=== PATIENT | male | born 1975 | race American Indian/Alaskan Native ===

== ENCOUNTER 2016-10-16 02:08 | Inpatient (IN) | payer MEDICAID ==
--- NOTE | 2016-10-16 02:23 | C.PDOC ---
History Of Present Illness A 40 y/o male with a hx of asthma c/o SOB after waking up tonight. Patient also reports feeling depressed saying "he wants to take pills". Denies fever, chills , nausea, vomiting, chest pain, palpitations, lower extremity pain, diaphoresis , or any other complaints. patient is speaking in full sentences. Time Seen by Provider: 10/16/16 02:23 History Per: Patient History/Exam Limitations: no limitations Onset/Duration Of Symptoms: Hrs Current Symptoms Are (Timing): Still Present Preciptating Factors: None Severity: Mild Recent travel outside of the [place]: No Additional History Per: Patient Past Medical History Reviewed: Historical Data, Nursing Documentation, Vital Signs Vital Signs: Last Vital Signs Temp 98.3 F 10/16/16 02:17 Pulse 74 10/16/16 02:17 Resp 20 10/16/16 02:39 BP 128/83 10/16/16 02:17 Pulse Ox 96 10/16/16 03:51 - Medical History PMH: Asthma, Bronchitis Family History: States: Unknown Family Hx - Social History Hx Alcohol Use: No Hx Substance Use: No Review Of Systems Constitutional: Negative for: Fever, Chills Eyes: Negative for: Vision Change ENT: Negative for: Throat Pain Cardiovascular: Negative for: Chest Pain, Palpitations Respiratory: Positive for: Shortness of Breath Gastrointestinal: Negative for: Nausea, Vomiting Genitourinary: Negative for: Dysuria Musculoskeletal: Negative for: Leg Pain, Foot Pain Skin: Positive for: Rash Neurological: Negative for: Headache, Dizziness Psych: Positive for: Depression, Suicidal ideation Physical Exam - Physical Exam Appears: Non-toxic, No Acute Distress Skin: Warm, Dry, Other (Skin impetigo to the right nare and upper lip.) Head: Normacephalic Eye(s): bilateral: Normal Inspection Oral Mucosa: Moist Throat: Normal, No Erythema, No Exudate Neck: Supple Cardiovascular: Rhythm Regular Respiratory: No Rales, No Rhonchi, Wheezing (Scattered), Other (Speaking in full sentences) Gastrointestinal/Abdominal: Soft, No Tenderness Back: No CVA Tenderness Extremity: Normal ROM Extremity: Bilateral: Atraumatic Neurological/Psych: Oriented x3, Normal Speech, Other (Affect depressed) Gait: Steady ED Course And Treatment - Laboratory Results Result Diagrams: 10/16/16 02:48 10/16/16 02:45 ECG: Interpreted By Me, Viewed By Me ECG Rhythm: Sinus Rhythm (69), Nonspecific Changes O2 Sat by Pulse Oximetry: 96 (RA) Pulse Ox Interpretation: Normal - Radiology CXR: Interpreted by Me, Viewed By Me CXR Interpretation: No: Infiltrates, Fracture, Pnemothorax Disposition Discussed With Dr.: Alejandro Randle Comment: accepted the pt on h is service and took over the care at 5:39 AM Doctor Will See Patient In The: Hospital Counseled Patient/Family Regarding: Studies Performed, Diagnosis - Disposition Disposition: HOSPITALIZED Disposition Time: : Condition: FAIR - POA Present On Arrival: None - Clinical Impression Clinical Impression: Major depressive disorder, recurrent, unspecified, PCP (phencyclidine) abuse, Opioid abuse - Scribe Statement The provider has reviewed the documentation as recorded by the Scribe Ani moore All medical record entries made by the Scribe were at my direction and personally dictated by me. I have reviewed the chart and agree that the record accurately reflects my personal performance of the history, physical exam, medical decision making, and the department course for this patient. I have also personally directed, reviewed, and agree with the discharge instructions and disposition. Decision To Admit - Pt Status Changed To: Hospital Disposition Of: Inpatient - Admit Certification Admit to Inpatient:: After my assessment, the patient will require hospitalization for at least two midnights. This is because of the severity of symptoms shown, intensity of services needed, and/or the medical risk in this patient being treated as an outpatient. - InPatient: Physician Admission Certification:: After my assessment, the patient will require hospitalization for at least two midnights. This is because of the severity of symptoms shown, intensity of services needed, and/or the medical risk in this patient being treated as an outpatient. - . Bed Request Type: Psychiatry Admitting Physician: Alejandro Randle Patient Diagnosis: Major depressive disorder, recurrent, unspecified, PCP (phencyclidine) abuse, Opioid abuse
[2016-10-16] MEDS: Albuterol-Ipratrop 3 mg / 0.5 (3 ml) UD IH SCH ×3 (02:45→03:30)
[2016-10-16 02:52] LABS: BASO # 0.1 K/uL (0.0-0.2); BASO % 0.6 % (0.0-2.0); EOS # 0.3 K/uL (0.0-0.7); EOS % 2.5 % (0.0-4.0); LYMPH # 2.2 K/uL (1.0-4.3); LYMPH % 17.9 % (20.0-40.0); MEAN CELL VOLUME 87.4 fL (80.0-94.0); MEAN CORPUSCULAR HEMOGLOBIN 29.2 pg (27.0-31.0); MEAN CORPUSCULAR HGB CONC 33.4 g/dL (33.0-37.0); MEAN PLATELET VOLUME 9.1 fL (7.2-11.7); MONO # 1.1 K/uL (0.0-0.8); MONO % 9.4 % (0.0-10.0); RED CELL DISTRIBUTION WIDTH 13.9 % (11.5-14.5); WHITE BLOOD COUNT 12.1 K/uL (4.8-10.8)
[2016-10-16 02:55] LABS: CHLORIDE 107 mmol/L (98-107); POTASSIUM 3.4 mmol/L (3.6-5.2); SODIUM 145 mmol/L (132-148)
[2016-10-16 02:56] LABS: ABG ALLEN TEST POS; ARTERIAL BLOOD GAS MODE ROOM AIR/; DRAW SITE RR
[2016-10-16 02:57] LABS: BILIRUBIN,TOTAL 0.5 mg/dL (0.2-1.3); GFR AFRICAN-AMERICAN > 60
[2016-10-16 02:58] LABS: ALB/GLOB RATIO 1.2 (1.0-2.1); ALKALINE PHOSPHATASE 73 U/L (38-126); ALT/SGPT 36 U/L (21-72); AST/SGOT 26 U/L (17-59); BLOOD UREA NITROGEN 9 mg/dL (9-20); CALCIUM 8.9 mg/dl (8.6-10.4); CARBON DIOXIDE 24 mmol/L (22-30); GLUCOSE,RANDOM 97 mg/dL (75-110); TOTAL PROTEIN 6.9 g/dL (6.3-8.3)
[2016-10-16 02:59] LABS: ALCOHOL SERUM < 10 mg/dl (0-10)
[2016-10-16 04:20] LABS: RBC URINE 11 /hpf (0-3); URINE BILIRUBIN NEGATIVE (NEGATIVE); URINE COLOR Amber (YELLOW); URINE GLUCOSE (UA) NORMAL (Normal); URINE KETONE TRACE mg/dL (NEGATIVE); URINE LEUKOCYTE ESTERASE TRACE Leu/uL (Negative); URINE PROTEIN 2+ mg/dL (NEGATIVE); WBC URINE 3 /hpf (0-5)
[2016-10-16 04:31] LABS: URINE BACTERIA FEW (<OCC); URINE BLOOD TRACE (NEGATIVE)
[2016-10-16 06:14] VITALS: O2SAT 95
[2016-10-16] MEDS ORDERED: Potassium Chloride 10 mEq ER Tab PO ONE (06:15)
--- NOTE | 2016-10-16 08:26 | PCM.BM ---
<Debbie Clark - Last Filed: 10/16/16 08:17> Treatment Plan Problems - Problems identified on initial assessmt Problem 1 Date Initiated: 10/16/16 Time Initiated: 08:18 Assessment reference: NA Opiate Abuse Date Initiated: 10/16/16 Time Initiated: 08:19 Assessment reference: NA Treatment assets and liabiliti Patient Assests: cooperative Patient Liabilities: financial problems, poor support system, substance abuse - Milieu Protocol Maintain good personal hygiene: daily Encourage regular showers, daily Remind patient to perform daily oral care Conduct patient checks and document Observation sheet: Q15 minutes Maintain personal safety: daily Educate patient to report safety concerns to staff, daily Monitor environment for contraband/sharps Medication safety: Monitor for expected outcome, potential side effects: daily, Assess barriers to learning: daily, Assess readiness for medication education: daily <Velma Muñoz - Last Filed: 10/16/16 10:49> Family Contact Family involvement: Family/SO is involved Family contact: Patient agrees to contact Family contact name: Rashi Prasad-father Family contacted how many times per week?: 1 - Goals for Treatment Patient goals for treatment: "I want to go to a methadone clinic." Discharge/Continuing Care - Education Needs Education Needs: Patient Medication, Patient Coping Skills, Patient Placement options, Patient Community resources - Discharge Discharge Criteria: Tolerates medication w/o severe side effects, No longer exhibiting s/s of withdrawal, Reduction of target symptoms Discharge to:: Skilled Nursing - Treatment Team Participation Was Patient/Family/SO present at Treatment Team Meeting: Yes <Rocio Cooney - Last Filed: 10/16/16 10:54> - Diagnosis (1) Schizoaffective disorder Status: Acute Interventions: * Assess/adjust medications daily and /or as needed * See patient on an individual basis 7x/week to assess status of hallucinations * Discuss risks, benefits, side effects and alternatives of medications (2) Opioid abuse Status: Acute Interventions: 10/16/16 10:54 * Assess 7x/week regarding severity of withdrawal * Educate regarding risks, benefits, side effects and alternatives of medications * Use Motivational Interviewing for abstinence * Use CBT for relapse prevention * Medication management for withdrawal symptoms * Encourage medication assisted treatment *
--- NOTE | 2016-10-16 10:20 | RAD ---
PROCEDURE: CHEST RADIOGRAPH, 1 VIEW HISTORY: Shortness of breath COMPARISON: None available. FINDINGS: LUNGS: The lungs are well inflated and clear. PLEURA: No pneumothorax or pleural fluid seen. CARDIOVASCULAR: Normal. OSSEOUS STRUCTURES: No significant abnormalities. VISUALIZED UPPER ABDOMEN: Normal. OTHER FINDINGS: None. IMPRESSION: No active pulmonary disease.
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
[2016-10-16] MEDS ORDERED: Aluminum Hydroxide/Magnesium Hydroxide Susp (30 mL) PO PRN (10:47)
[2016-10-16] MEDS ORDERED: Benzocaine/Menthol (Cepacol) Lozenge PO PRN (10:47)
--- NOTE | 2016-10-16 19:56 | PCM.BM ---
Treatment Plan Problems - Problems identified on initial assessmt Depression Date Initiated: 10/16/16 Time Initiated: 08:18 Assessment reference: NA Opiate Abuse Date Initiated: 10/16/16 Time Initiated: 08:19 Assessment reference: NA Treatment assets and liabiliti Patient Assests: cooperative Patient Liabilities: financial problems, poor support system, substance abuse - Milieu Protocol Maintain good personal hygiene: daily Encourage regular showers, daily Remind patient to perform daily oral care Conduct patient checks and document Observation sheet: Q15 minutes Maintain personal safety: daily Educate patient to report safety concerns to staff, daily Monitor environment for contraband/sharps Medication safety: Monitor for expected outcome, potential side effects: daily, Assess barriers to learning: daily, Assess readiness for medication education: daily Family Contact Family involvement: Family/SO is involved Family contact: Patient agrees to contact Family contact name: Rashi Prasad-father Family contacted how many times per week?: 1 - Goals for Treatment Patient goals for treatment: "I want to go to a methadone clinic." Discharge/Continuing Care - Education Needs Education Needs: Patient Medication, Patient Coping Skills, Patient Placement options, Patient Community resources - Discharge Discharge Criteria: Tolerates medication w/o severe side effects, No longer exhibiting s/s of withdrawal, Reduction of target symptoms Discharge to:: [facility] - Treatment Team Participation Was Patient/Family/SO present at Treatment Team Meeting: Yes
--- NOTE | 2016-10-17 12:54 | CARD ---
APPROVED REPORT EKG Measurement Heart [id number] <Conclusion> Normal sinus rhythm Normal ECG
--- NOTE | 2016-10-17 13:46 | PCM.PYCHPN ---
Psychiatric Progress Note - Psychiatric Progress Note Patient seen today, length of contact: 15 MIN Patient Chief Complaint: "I am withdrawing and am depressed." Problems Identified/Issues Discussed: Patient seen and evaluated, chart reviewed and discussed with the nurse. Patient remained disorganized and internally preoccupied. Patient remained isolated, confined and withdrawn. He still reports of hearing voices. Patient still appears paranoid and delusional. He reports depressed mood and feelings of hopelessness and helplessness. He reports withdrawal symptoms including cramps, sweating, headaches anxiety. But remained isolated and withdrawn. He is taking medication and denies any side effects. Supportive therapy and psychoeducation were given. Medication Change: Yes (increase haldol) Medical Record Reviewed: Yes Mental Status Examination - Cognitive Function Orientation: Person, Place, Situation, Time Memory: Intact Attention: WNL Concentration: Poor Association: Loose Fund of Knowledge: Poor - Mood Mood: Depressed, Anxious - Affect Affect: Constricted, Depressed - Speech Speech: Soft - Formal Thought Process Formal Thought Process: Hallucinations, Delusions, Paranoia, Loosening of associations - Suicidal Ideation Suicidal Ideation: No - Homicidal Ideation Homicidal Ideation: No Goal/Treatment Plan - Goal/Treatment Plan Need for Continued Stay: Discharge may exacerbated symptoms, Severe functional impairment Progress Toward Problem(s) and Goals/Treatment Plan: Schizo affective disorder bipolar type CBT Psychoeducation Supportive therapy, group therapy, individual therapy Haldol 5 mg by mouth BID Trazodone 50 mg by mouth daily at bedtime Depakote 500 mg po BID Opioid use disorder severe CBT Psychoeducation Supportive therapy, individual therapy Use [place] for abstinence Opioid withdrawal CBT Psychoeducation Supportive therapy, individual therapy Clonidine when necessary methadone taper Cocaine use disorder moderate Monitor signs and symptoms Use [place] for abstinence - Smoking Cessation Smoking Cessation Initiated: No
[2016-10-17] MEDS: Albuterol HFA 90 mcg/actuation (8 g) INH PRN (19:50)
--- NOTE | 2016-10-18 10:02 | PCM.PYCHPN ---
Psychiatric Progress Note - Psychiatric Progress Note Patient seen today, length of contact: 16 min Patient Chief Complaint: "I am withdrawing and am depressed." Problems Identified/Issues Discussed: Patient seen and evaluated, chart reviewed and discussed with the nurse. Patient remained disorganized and remained isolated, confined and withdrawn. He still reports withdrawal symptoms and reports of hearing voices. Patient still appears paranoid and delusional. He reports depressed mood and feelings of hopelessness and helplessness. He is taking medication and denies any side effects. He needs some time for socialization. Supportive therapy and psychoeducation were given. Medication Change: Yes Medical Record Reviewed: Yes Mental Status Examination - Cognitive Function Orientation: Person, Place, Situation, Time Memory: Intact Attention: WNL Concentration: Poor Association: Loose Fund of Knowledge: WNL - Mood Mood: Depressed, Anxious - Affect Affect: Constricted, Depressed - Speech Speech: Soft - Formal Thought Process Formal Thought Process: Hallucinations, Delusions, Paranoia, Loosening of associations - Suicidal Ideation Suicidal Ideation: No - Homicidal Ideation Homicidal Ideation: No Goal/Treatment Plan - Goal/Treatment Plan Need for Continued Stay: Discharge may exacerbated symptoms, Severe functional impairment Progress Toward Problem(s) and Goals/Treatment Plan: Schizo affective disorder bipolar type CBT Psychoeducation Supportive therapy, group therapy, individual therapy Haldol 5 mg by mouth QHS Depakote 500 mg PO BID Trazodone 50 mg by mouth daily at bedtime Opioid use disorder severe CBT Psychoeducation Supportive therapy, individual therapy Use [place] for abstinence Opioid withdrawal CBT Psychoeducation Supportive therapy, individual therapy Clonidine when necessary methadonetaper Cocaine use disorder moderate Monitor signs and symptoms Use [place] for abstinence - Smoking Cessation Smoking Cessation Initiated: No
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
[2016-10-19] MEDS: Ammonium Lactate 12% Lotion (225 g) EXT SCH ×3 (09:25→17:51)
[2016-10-19] MEDS ORDERED: Pneumococcal 23-Valent Vaccine IM ONE (10:00)
--- NOTE | 2016-10-19 10:41 | PCM.PYCHPN ---
Psychiatric Progress Note - Psychiatric Progress Note Patient seen today, length of contact: 15 min Patient Chief Complaint: "I am still feeling depressed." Problems Identified/Issues Discussed: Patient seen and evaluated, chart reviewed and discussed with the nurse. Supportive therapy and psychoeducation were given. Patient reports improvement in his mood than yesterday but still reports withdrawal symptoms including, cramps, nausea, anxiety and headaches. Patient reports depressed mood and AH non command type. He is tolerating the withdrawal medications and denies any side effects. Medicine was consulted because of skin rash. He needs more time for stabilization. Medication Change: Yes (methaodne taper) Medical Record Reviewed: Yes Mental Status Examination - Cognitive Function Orientation: Person, Place, Situation, Time Memory: Intact Attention: WNL Concentration: Poor Association: Loose Fund of Knowledge: WNL - Mood Mood: Depressed, Anxious - Affect Affect: Constricted, Depressed - Speech Speech: Soft - Formal Thought Process Formal Thought Process: Hallucinations, Delusions, Paranoia, Loosening of associations - Suicidal Ideation Suicidal Ideation: No - Homicidal Ideation Homicidal Ideation: No Goal/Treatment Plan - Goal/Treatment Plan Need for Continued Stay: Discharge may exacerbated symptoms, Severe functional impairment Progress Toward Problem(s) and Goals/Treatment Plan: Schizo affective disorder bipolar type CBT Psychoeducation Supportive therapy, group therapy, individual therapy Haldol 5 mg by mouth QHS Depakote 500 mg PO BID Trazodone 50 mg by mouth daily at bedtime Opioid use disorder severe CBT Psychoeducation Supportive therapy, individual therapy Use DE for abstinence Opioid withdrawal CBT Psychoeducation Supportive therapy, individual therapy Clonidine when necessary methadone taper Cocaine use disorder moderate Monitor signs and symptoms Use DE for abstinence - Smoking Cessation Smoking Cessation Initiated: No
[2016-10-20] MEDS: Ammonium Lactate 12% Lotion (225 g) EXT SCH ×3 (09:38→17:24)
--- NOTE | 2016-10-20 11:46 | PCM.PYCHPN ---
Psychiatric Progress Note - Psychiatric Progress Note Patient seen today, length of contact: 15 min Patient Chief Complaint: "I am feeling little better ' Problems Identified/Issues Discussed: Patient seen and evaluated, chart reviewed and discussed with the nurse. Patient appeared more organized and less internally preoccupied. Patient reports improvement in the irritability, anxiety and agitation. He also reports improvement in the voices. Patient still appears paranoid and delusional. He reports improvement in his depressed mood but remained isolated and withdrawn, denies any suicidal ideation or homicidal ideation. He is taking medications and denies any side effects. He needs more time for stabilization. Supportive therapy and psychoeducation were given. Medication Change: Yes (Increase Haldol) Medical Record Reviewed: Yes Mental Status Examination - Cognitive Function Orientation: Person, Place, Situation, Time Memory: Intact Attention: WNL Concentration: Poor Association: Loose Fund of Knowledge: WNL - Mood Mood: Depressed, Anxious - Affect Affect: Constricted, Depressed - Speech Speech: Soft - Formal Thought Process Formal Thought Process: Hallucinations, Delusions, Paranoia, Loosening of associations - Suicidal Ideation Suicidal Ideation: No - Homicidal Ideation Homicidal Ideation: No Goal/Treatment Plan - Goal/Treatment Plan Need for Continued Stay: Discharge may exacerbated symptoms, Severe functional impairment Progress Toward Problem(s) and Goals/Treatment Plan: Schizo affective disorder bipolar type CBT Psychoeducation Supportive therapy, group therapy, individual therapy Increase Haldol 10 mg by mouth BID Depakote 500 mg PO BID Trazodone 100 mg by mouth daily at bedtime Opioid use disorder severe CBT Psychoeducation Supportive therapy, individual therapy Use IN for abstinence Opioid withdrawal CBT Psychoeducation Supportive therapy, individual therapy Clonidine when necessary methadone taper Cocaine use disorder moderate Monitor signs and symptoms Use IN for abstinence Skin infection Continue prescribed medications - Smoking Cessation Smoking Cessation Initiated: No
[2016-10-20] MEDS: Divalproex 250 mg DR Tab PO SCH (17:23)
[2016-10-20] MEDS ORDERED: Divalproex 250 mg DR Tab PO SCH (18:00)
[2016-10-21] MEDS: Divalproex 250 mg DR Tab PO SCH ×2 (09:06→17:57)
[2016-10-21] MEDS: Ammonium Lactate 12% Lotion (225 g) EXT SCH ×3 (09:07→17:57)
--- NOTE | 2016-10-21 16:41 | PCM.PYCHPN ---
Psychiatric Progress Note - Psychiatric Progress Note Patient seen today, length of contact: 15 min Patient Chief Complaint: "I feel okay." Problems Identified/Issues Discussed: Patient seen and evaluated, chart reviewed and discussed with the nurse. Patient is a 40 y/o male with complaint of asthma attack and withdrawal sxs. from heroine, cocaine, marijuana, and PCP. His asthma is currently controlled w / albuterol. He reports having withdrawal symptoms, including n/v, diarrhea, body aches, and stiffness. Patient appears a little withdrawn and seemed to have trouble concentrating on the questions being asked. He denies being anxious or agitated. He was hearing voices and seeing shadows 3 days ago, but denies having hallucinations today. He feels "okay" today, "a little guilty," and decrease in energy. His sleep has improved with medications. He denies homicidal ideation and suicidal ideation. He is taking medications and denies any side effects. He needs more time for stabilization. Supportive therapy and psychoeducation were given. Medication Change: Yes (Increase Haldol) Medical Record Reviewed: Yes Mental Status Examination - Cognitive Function Orientation: Person, Place, Situation, Time Memory: Intact Attention: WNL Concentration: Poor Association: Loose Fund of Knowledge: WNL - Mood Mood: Depressed, Anxious - Affect Affect: Constricted, Depressed - Speech Speech: Soft - Formal Thought Process Formal Thought Process: Hallucinations, Delusions, Paranoia, Loosening of associations - Suicidal Ideation Suicidal Ideation: No - Homicidal Ideation Homicidal Ideation: No Goal/Treatment Plan - Goal/Treatment Plan Need for Continued Stay: Discharge may exacerbated symptoms, Severe functional impairment Progress Toward Problem(s) and Goals/Treatment Plan: Schizo affective disorder bipolar type CBT Psychoeducation Supportive therapy, group therapy, individual therapy Increase Haldol 10 mg by mouth BID Depakote 500 mg PO BID Trazodone 100 mg by mouth daily at bedtime Opioid use disorder severe CBT Psychoeducation Supportive therapy, individual therapy Use HI for abstinence Opioid withdrawal CBT Psychoeducation Supportive therapy, individual therapy Clonidine when necessary methadone taper Cocaine use disorder moderate Monitor signs and symptoms Use HI for abstinence Skin infection Continue prescribed medications
[2016-10-22] MEDS: Divalproex 250 mg DR Tab PO SCH ×2 (09:40→17:30)
[2016-10-22] MEDS: Ammonium Lactate 12% Lotion (225 g) EXT SCH ×3 (09:41→17:30)
[2016-10-22] MEDS: Albuterol HFA 90 mcg/actuation (8 g) INH PRN (22:05)
[2016-10-23 07:42] VITALS: BP 122/68; PULSE 71; RESP 19; TEMP 98
[2016-10-23] MEDS: Divalproex 250 mg DR Tab PO SCH (09:47)
[2016-10-23] MEDS: Ammonium Lactate 12% Lotion (225 g) EXT SCH (09:47)
--- NOTE | 2016-10-23 10:46 | PCM.PYCHPN ---
Psychiatric Progress Note - Psychiatric Progress Note Patient seen today, length of contact: 15 min Patient Chief Complaint: "I feel okay." Problems Identified/Issues Discussed: The pt is seen, chart reviewed, case discussed with staff. Support given, CBT and PR used briefly No new symptoms reported, improving slowly and needs some more time No SEs from medications, risks discussed. After care discussed Medication Change: Yes (Increase Haldol) Medical Record Reviewed: Yes Mental Status Examination - Cognitive Function Orientation: Person, Place, Situation, Time Memory: Intact Attention: WNL Concentration: WNL Association: WNL Fund of Knowledge: Poor - Mood Mood: Depressed, Anxious - Affect Affect: Constricted, Depressed - Speech Speech: Soft - Formal Thought Process Formal Thought Process: Delusions - Suicidal Ideation Suicidal Ideation: No - Homicidal Ideation Homicidal Ideation: No Goal/Treatment Plan - Goal/Treatment Plan Need for Continued Stay: Discharge may exacerbated symptoms, Severe functional impairment Progress Toward Problem(s) and Goals/Treatment Plan: Schizo affective disorder bipolar type CBT Psychoeducation Supportive therapy, group therapy, individual therapy Increase Haldol 10 mg by mouth BID Depakote 500 mg PO BID Trazodone 100 mg by mouth daily at bedtime Opioid use disorder severe CBT Psychoeducation Supportive therapy, individual therapy Use PR for abstinence Opioid withdrawal CBT Psychoeducation Supportive therapy, individual therapy Clonidine when necessary methadone taper Cocaine use disorder moderate Monitor signs and symptoms Use PR for abstinence Skin infection Continue prescribed medications - Smoking Cessation Smoking Cessation Initiated: No
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
== END 2016-10-23 11:15 | disposition home or self-care (01) | DRG 744 ==
LOC: C.ER 02:08 → C.5E 05:38
PROC: HZ2ZZZZ Detoxification Services for Substance Abuse Treatment (ICD-10-PCS; principal; 2016-10-16)
PROC: HZ52ZZZ Individual Psychotherapy for Substance Abuse Treatment, Cognitive-Behavioral (ICD-10-PCS; 2016-10-16)
PROC: HZ42ZZZ Group Counseling for Substance Abuse Treatment, Cognitive-Behavioral (ICD-10-PCS; 2016-10-16)
PROC: HZ59ZZZ Individual Psychotherapy for Substance Abuse Treatment, Supportive (ICD-10-PCS; 2016-10-16)
PROC: HZ56ZZZ Individual Psychotherapy for Substance Abuse Treatment, Psychoeducation (ICD-10-PCS; 2016-10-16)
PROC: HZ46ZZZ Group Counseling for Substance Abuse Treatment, Psychoeducation (ICD-10-PCS; 2016-10-16)
DX: F11.23 Opioid dependence with withdrawal (principal); F25.0 Schizoaffective disorder, bipolar type; R45.851 Suicidal ideations; E88.89 Other specified metabolic disorders; J45.901 Unspecified asthma with (acute) exacerbation; F12.288 Cannabis dependence with other cannabis-induced disorder; F16.288 Hallucinogen dependence with other hallucinogen-induced disorder; F14.23 Cocaine dependence with withdrawal; Z59.0 Homelessness; F17.210 Nicotine dependence, cigarettes, uncomplicated

== ENCOUNTER 2017-03-20 14:12 | Inpatient (IN) | payer MEDICAID ==
[2017-03-20 15:03] VITALS: BMI 34.4
[2017-03-20] MEDS ORDERED: Albuterol-Ipratrop 3 mg / 0.5 (3 ml) UD INH STA (15:07)
[2017-03-20] MEDS ORDERED: cefTRIAXone (Rocephin) 250 mg Inj IM STA (15:08)
--- NOTE | 2017-03-20 15:18 | C.PDOC ---
History Of Present Illness 41 yr old male presents to the ER stating, he was [place] [facility] [place] and was discharged home with antibiotics after being diagnosed with UTI. Today, patient states he comes in for continuing scrotal pain and SI. Patient admits to history for admission for depression. Also states he was unable to fill his prescription today. Patient denies visual or auditory hallucinations, fever, chills, chest pain, SOB, diarrhea, incontinence, weakness or numbness. No alcohol or drug use today. Time Seen by Provider: 03/20/17 14:29 Chief Complaint (Nursing): Abdominal Pain History Per: Patient History/Exam Limitations: no limitations Onset/Duration Of Symptoms: Days Current Symptoms Are (Timing): Still Present Past Medical History Reviewed: Historical Data, Nursing Documentation, Vital Signs Vital Signs: Last Vital Signs Temp 99.4 F 03/20/17 18:05 Pulse 73 03/20/17 18:05 Resp 16 03/20/17 18:05 BP 165/93 H 03/20/17 18:05 Pulse Ox 95 03/20/17 18:05 - Medical History PMH: Asthma, Bronchitis, Depression - [facility] Procedures DETOXIFICATION SERVICES FOR SUBSTANCE ABUSE TREATMENT (10/16/16) GROUP RN EMERGENCY ROOM FOR SUBSTANCE ABUSE TREATMENT, PSYCHOEDUCATION (10/16/16) GROUP RN EMERGENCY ROOM FOR SUBSTANCE ABUSE, COGNITIVE BEHAVIORAL (10/16/16) INDIV PSYCHOTHERAPY FOR SUBSTANCE ABUSE TREATMENT, SUPPORT (10/16/16) INDIV PSYCHOTHERAPY FOR SUBSTANCE ABUSE, COGNITIV BEHAVIORAL (10/16/16) INDIV PSYCHOTHERAPY FOR SUBSTANCE ABUSE, PSYCHOEDUCATION (10/16/16) Family History: States: No Known Family Hx - Social History Hx Alcohol Use: No Hx Substance Use: Yes (PCP) - Immunization History Hx Tetanus Toxoid Vaccination: No Hx Influenza Vaccination: No Hx Pneumococcal Vaccination: No Review Of Systems Except As Marked, All Systems Reviewed And Found Negative. Constitutional: Negative for: Fever, Chills Cardiovascular: Negative for: Chest Pain Respiratory: Negative for: Shortness of Breath Gastrointestinal: Negative for: Diarrhea Genitourinary: Positive for: Hematuria, Scrotal Pain. Negative for: Incontinence Neurological: Negative for: Weakness, Numbness Psych: Positive for: Suicidal ideation Physical Exam - Physical Exam Appears: Non-toxic, No Acute Distress Skin: Warm, Dry, No Rash Chest: Symmetrical, No Tenderness Cardiovascular: Rhythm Regular, No Murmur Respiratory: No Rales, No Stridor, Wheezing (bilateral) Gastrointestinal/Abdominal: Normal Exam, Soft, No Tenderness, No Guarding, No Rebound Back: Normal Inspection, No CVA Tenderness Male Genital: No Testicular Tenderness, Circumcised, Other ((+) spontaneous yellow discharge from penis, distended bilateral tesicules, right sided scrotal tenderness) Extremity: Normal ROM, No Swelling Neurological/Psych: Oriented x3, Normal Speech, Normal Motor ED Course And Treatment - Laboratory Results Result Diagrams: 03/20/17 15:38 03/20/17 15:38 O2 Sat by Pulse Oximetry: 98 (RA) Pulse Ox Interpretation: Normal Medical Decision Making Medical Decision Making: PLAN: * US - Testicular * EKG * Alcohol Serum * Drug Screen * CBC * CMP * Chlamydia GC * Urinalysis * Albuterol INH * Rocephin IM * Zithromax PO NOTE: Patient is unable to tell me if he was treated for chlamydia or gonorrhea. Also unable to recall the name of antibiotics he was prescribed from [facility] Patient was dischargred on cefpoxidine per overhead worker 5:10PM Patient was treated presumptively for gonorrhea and chlamydia due to penile discharge. Patient has uti. He is well appearing and afebrile. EKG shows NSR at 72bpm with normal intervals and no ST changes. U/S Negative study for epididymitis, orchitis or torsion. Complex right hydrocele, small simple left hydrocele. Scrotal thickening symmetrical and mild." He can be admitted to psych with po antibiotics for uti. he is medically cleared. 7:06PM Accepted by Dr. Merritt Disposition - Disposition Disposition: HOME/ ROUTINE Disposition Time: 17:20 Condition: GOOD Forms: [facility] (Faroese) - Clinical Impression Clinical Impression: Hydrocele, UTI (urinary tract infection), Penile discharge, Depression, Opiate abuse, continuous - Scribe Statement The provider has reviewed the documentation as recorded by the Monchoibe Melisa Christine Provider Attestation: All medical record entries made by the Scribe were at my direction and personally dictated by me. I have reviewed the chart and agree that the record accurately reflects my personal performance of the history, physical exam, medical decision making, and the department course for this patient. I have also personally directed, reviewed, and agree with the discharge instructions and disposition.
[2017-03-20 15:45] LABS: BASO % 0.3 % (0.0-2.0); EOS # 0.1 K/uL (0.0-0.7); EOS % 0.5 % (0.0-4.0); HEMOGLOBIN 12.3 g/dL (12.0-18.0); LYMPH # 1.8 K/uL (1.0-4.3); LYMPH % 14.2 % (20.0-40.0); MEAN CELL VOLUME 87.6 fL (80.0-94.0); MEAN CORPUSCULAR HEMOGLOBIN 30.1 pg (27.0-31.0); MEAN CORPUSCULAR HGB CONC 34.3 g/dL (33.0-37.0); MONO % 7.9 % (0.0-10.0); NEUT # 9.8 K/uL (1.8-7.0); NEUT % 77.1 % (50.0-75.0); RBC 4.1 Mil/uL (4.40-5.90); RED CELL DISTRIBUTION WIDTH 13.6 % (11.5-14.5); WHITE BLOOD COUNT 12.7 K/uL (4.8-10.8)
[2017-03-20 16:13] LABS: ALB/GLOB RATIO 1.2 (1.0-2.1); ALBUMIN 3.9 g/dL (3.5-5.0); ALT/SGPT 28 U/L (21-72); AST/SGOT 20 U/L (17-59); BLOOD UREA NITROGEN 5 mg/dL (9-20); CALCIUM 8.9 mg/dl (8.6-10.4); GFR AFRICAN-AMERICAN > 60; GFR NON-AFRICAN AMERICAN > 60; LIPASE 103 U/L (23-300)
--- NOTE | 2017-03-20 16:24 | RAD ---
HISTORY: psych COMPARISON: Comparison chest 10/16/2016. FINDINGS: LUNGS: No active pulmonary disease. PLEURA: No significant pleural effusion identified, no pneumothorax apparent. CARDIOVASCULAR: Normal. OSSEOUS STRUCTURES: No significant abnormalities. VISUALIZED UPPER ABDOMEN: Normal. OTHER FINDINGS: None. IMPRESSION: No active disease.
[2017-03-20 16:30] LABS: BARBITURATES, UR NEGATIVE (NEGATIVE); BENZODIAZEPINES, UR NEGATIVE (NEGATIVE); PHENCYCLIDINE, UR NEGATIVE (NEGATIVE)
[2017-03-20] MEDS ORDERED: cefTRIAXone 250 MG in Lidocaine Hydrochloride 0.9 ML IM ONE (16:30)
[2017-03-20 16:31] LABS: OPIATES, UR POSITIVE (NEGATIVE)
[2017-03-20] MEDS ORDERED: Albuterol-Ipratrop 3 mg / 0.5 (3 ml) UD ONE (16:48)
[2017-03-20] MEDS ORDERED: Sodium Chloride 0.9% 500 ML IV ONE (16:53)
[2017-03-20 17:04] LABS: URINE BACTERIA RARE (<OCC); URINE BILIRUBIN NEGATIVE (NEGATIVE); URINE BLOOD NEGATIVE (NEGATIVE); URINE CLARITY Hazy (Clear); URINE COLOR Straw (YELLOW); URINE GLUCOSE (UA) NORMAL (Normal); URINE LEUKOCYTE ESTERASE 3+ Leu/uL (Negative); URINE NITRATE NEGATIVE (NEGATIVE); URINE PROTEIN NEGATIVE (NEGATIVE); URINE UROBILINOGEN NORMAL mg/dL (0.2-1.0)
--- NOTE | 2017-03-20 17:28 | US ---
HISTORY: R sided scrotal pain TECHNIQUE: Realtime sonography through the scrotum with color and doppler flow. COMPARISON: None Available. FINDINGS: RIGHT TESTICLE: Measures 2.2 x 4.1 cm. Normal echotexture and flow. RIGHT EPIDIDYMIS: Epididymal head measures 0.8 x 1.1 cm. Grossly unremarkable appearance with normal flow. LEFT TESTICLE: Measures 3.3 x 2.7 x 4.5 cm. Normal echotexture and flow. LEFT EPIDIDYMIS: Epididymal head measures 0.9 x 0.8 cm. Grossly unremarkable appearance with normal flow. HYDROCELE: Complex right hydrocele. Small volume. Trace left hydrocele likely physiologic VARICOCELE: None. OTHER FINDINGS: Scrotal thickening bilaterally, mild and symmetrical. IMPRESSION: Negative study for epididymitis, orchitis or torsion. Complex right hydrocele, small simple left hydrocele. Scroll thickening symmetrical and mild.
[2017-03-20] MEDS ORDERED: Albuterol HFA 90 mcg/actuation (8 g) INH PRN (20:02)
--- NOTE | 2017-03-20 20:25 | PCM.BM ---
<Savannah Pelaez - Last Filed: 03/20/17 20:24> Treatment Plan Problems - Problems identified on initial assessmt Depression Date Initiated: 03/20/17 Time Initiated: 20:24 Assessment reference: NA Status: Active Comment: hx of heroin abuse (does 30 bags intranasal daily) Treatment assets and liabiliti Patient Assests: cooperative, negotiates basic needs, cognitively intact Patient Liabilities: live alone, poor support system, substance abuse, medical problems - Milieu Protocol Maintain good personal hygiene: daily Encourage regular showers, daily Remind patient to perform daily oral care Conduct patient checks and document Observation sheet: Q15 minutes Maintain personal safety: every shift Educate patient to report safety concerns to staff, every shift Monitor environment for contraband/sharps Medication safety: Monitor for expected outcome, potential side effects: every shift, Assess barriers to learning: every shift, Assess readiness for medication education: every shift <Velma Muñoz - Last Filed: 03/21/17 11:07> Family Contact Family involvement: Famliy/SO not involved - Goals for Treatment Patient goals for treatment: "I want to go to rehab." Discharge/Continuing Care - Education Needs Education Needs: Patient Medication, Patient Coping Skills, Patient Placement options, Patient Community resources - Discharge Discharge Criteria: Tolerates medication w/o severe side effects, No longer exhibiting s/s of withdrawal, Reduction of target symptoms Discharge to:: Substance Abuse Rehab - Treatment Team Participation Discussed with Family/SO: No Was Patient/Family/SO present at Treatment Team Meeting: Yes <ErosRocio - Last Filed: 03/21/17 11:10> - Diagnosis (1) Bipolar affective disorder, depressed, severe, with psychotic behavior Status: Acute Interventions: 03/21/17 11:09 * Assess/adjust medications daily and /or as needed * See patient on an individual basis 7x/week to assess level of manic behaviors and stability * Discuss risks, benefits, side effects and alternatives of medications * (2) Opiate abuse, continuous Status: Acute Interventions: 03/21/17 11:10 * Assess 7x/week regarding severity of withdrawal * Educate regarding risks, benefits, side effects and alternatives of medications * Use Motivational Interviewing for abstinence * Use CBT for relapse prevention * Medication management for withdrawal symptoms * Encourage medication assisted treatment *
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
[2017-03-21] MEDS ORDERED: Aluminum Hydroxide/Magnesium Hydroxide Susp (30 mL) PO PRN (11:06)
--- NOTE | 2017-03-22 19:53 | PCM.PYCHPN ---
Psychiatric Progress Note - Psychiatric Progress Note Patient seen today, length of contact: 15 minutes Patient Chief Complaint: I have him back ache and decreased sleep. Problems Identified/Issues Discussed: Patient seen, chart reviewed, case discussed with the staff. Issues related to illness and treatment were discussed with the patient. Reported compliant with treatment with no adverse affects. Still feels back ache and decreased sleep. We'll increase the dose of trazodone to 150. Patient agreed. Aftercare discussed with the patient. Patient [facility] to [facility]. At the time of evaluation, patient was awake alert oriented 3, had no delusions , no auditory visual hallucinations, no suicidal ideations homicidal ideations. Medical Problems: UTI Diagnostic Results: Reviewed DSM 5 Symptoms Update: Improving with treatment Medication Change: Yes (Dose of trazodone increased to 150 mg) Medical Record Reviewed: Yes Mental Status Examination - Cognitive Function Orientation: Person, Place, Situation, Time Memory: Intact Attention: WNL Concentration: WNL Association: WNL Fund of Knowledge: WN Decription of patient's judgement and insights: Fair - Mood Mood: Depressed (Less than before) - Affect Affect: Depressed - Speech Speech: Appropriate - Formal Thought Process Formal Thought Process: No Impairment Psychotic Thoughts and Behaviors: None reported - Suicidal Ideation Suicidal Ideation: No - Homicidal Ideation Homicidal Ideation: No Goal/Treatment Plan - Goal/Treatment Plan Need for Continued Stay: Remain at risks for inpatient hospitalization, Discharge may exacerbated symptoms, Severe functional impairment Progress Toward Problem(s) and Goals/Treatment Plan: Patient education Supportive therapy Motivational interview for abstinence CBT for relapse prevention Continue treatment as before Patient wants to go [facility] after discharge from the hospital for follow-up care. Estimated Date of D/C: 03/26/17 - Smoking Cessation Smoking Cessation Initiated: No
--- NOTE | 2017-03-23 13:50 | PCM.PYCHPN ---
Psychiatric Progress Note - Psychiatric Progress Note Patient seen today, length of contact: 15 minutes Patient Chief Complaint: I feel little nauseous. Problems Identified/Issues Discussed: Patient seen, chart reviewed, case discussed with the staff. Issues related to illness and treatment were discussed with the patient. Reported compliant with treatment with no adverse affects. Reported feeling nauseous. Patient was calm and cooperative. Aftercare discussed with the patient. Patient wants to go [facility]. At the time of evaluation, patient was awake alert oriented 3, had no delusions , no auditory visual hallucinations, no suicidal ideations homicidal ideations. Medical Problems: UTI Diagnostic Results: Reviewed DSM 5 Symptoms Update: Improving with treatment Medication Change: No Medical Record Reviewed: Yes Mental Status Examination - Cognitive Function Orientation: Person, Place, Situation, Time Memory: Intact Attention: WNL Concentration: WNL Association: WN Fund of Knowledge: [facility] Decription of patient's judgement and insights: Fair - Mood Mood: Depressed (Less than before) - Affect Affect: Depressed - Speech Speech: Appropriate - Formal Thought Process Formal Thought Process: No Impairment Psychotic Thoughts and Behaviors: None reported - Suicidal Ideation Suicidal Ideation: No - Homicidal Ideation Homicidal Ideation: No Goal/Treatment Plan - Goal/Treatment Plan Need for Continued Stay: Remain at risks for inpatient hospitalization, Discharge may exacerbated symptoms, Severe functional impairment Progress Toward Problem(s) and Goals/Treatment Plan: Patient education Supportive therapy Motivational interview for abstinence CBT for relapse prevention Continue treatment as before Patient wants to go [facility] after discharge from the hospital for follow-up care. Estimated Date of D/C: 03/26/17 - Smoking Cessation Smoking Cessation Initiated: No
--- NOTE | 2017-03-24 11:00 | PCM.PYCHPN ---
Psychiatric Progress Note - Psychiatric Progress Note Patient seen today, length of contact: 15 minutes Patient Chief Complaint: I was feeling depressed and suicidal.' Medication Change: No Medical Record Reviewed: Yes Mental Status Examination - Cognitive Function Orientation: Person, Place, Situation, Time Memory: Intact Attention: WNL Concentration: WNL Association: WNL Fund of Knowledge: WNL - Mood Mood: Depressed (Less than before) - Affect Affect: Depressed - Speech Speech: Appropriate - Formal Thought Process Formal Thought Process: No Impairment - Suicidal Ideation Suicidal Ideation: No - Homicidal Ideation Homicidal Ideation: No Goal/Treatment Plan - Goal/Treatment Plan Need for Continued Stay: Remain at risks for inpatient hospitalization, Discharge may exacerbated symptoms, Severe functional impairment Progress Toward Problem(s) and Goals/Treatment Plan: Bipolar disorder depressed severe with psychotic features CBT Psychoeducation Supportive therapy, group therapy, individual therapy Paxil 10 mg PO Daily Seroquel 100 mg by mouth QHS Trazodone 100 mg by mouth daily at bedtime Opioid use disorder severe CBT Psychoeducation Supportive therapy, individual therapy Use [place] for abstinence Opioid withdrawal CBT Psychoeducation Supportive therapy, individual therapy Clonidine when necessary Start methadone taper Cocaine use disorder severe Monitor signs and symptoms Use [place] for abstinence Estimated Date of D/C: 03/26/17
[2017-03-24 17:09] LABS: C. PNEUMONIAE IGA <1:16 (<1:16); C. PNEUMONIAE IGM <1:10 (<1:10); C. PSITTACI IGA <1:16 (<1:16); C. PSITTACI IGM <1:10 (<1:10)
[2017-03-25 13:53] LABS: C. PSITTACI IGG <1:64 (<1:64)
--- NOTE | 2017-03-25 22:15 | PCM.PYCHPN ---
Psychiatric Progress Note - Psychiatric Progress Note Patient seen today, length of contact: 15 minutes Patient Chief Complaint: I m feeling little better.' Problems Identified/Issues Discussed: Patient seen and evaluated, chart reviewed and discussed with the nurse. He reports improvement in his mood and improvement in the feelings of hopelessness and helplessness. Patient remained isolated, confined and withdrawn. He wants to go to the rehab to stay clean. Patient is compliant with medications and denies any side effects. Symptoms are improving but need more time to stabilize. Support and psychoeducation given. Medication Change: Yes (Increase Paxil) Medical Record Reviewed: Yes Mental Status Examination - Cognitive Function Orientation: Person, Place, Situation, Time Memory: Intact Attention: WNL Concentration: Poor Association: WNL Fund of Knowledge: Poor - Mood Mood: Depressed (Less than before), Anxious - Affect Affect: Constricted, Depressed - Speech Speech: Appropriate - Formal Thought Process Formal Thought Process: No Impairment - Suicidal Ideation Suicidal Ideation: No - Homicidal Ideation Homicidal Ideation: No Goal/Treatment Plan - Goal/Treatment Plan Need for Continued Stay: Remain at risks for inpatient hospitalization, Discharge may exacerbated symptoms, Severe functional impairment Progress Toward Problem(s) and Goals/Treatment Plan: Bipolar disorder depressed severe with psychotic features CBT Psychoeducation Supportive therapy, group therapy, individual therapy Paxil 20 mg PO Daily Seroquel 100 mg by mouth QHS Trazodone 100 mg by mouth daily at bedtime Opioid use disorder severe CBT Psychoeducation Supportive therapy, individual therapy Use [place] for abstinence Opioid withdrawal CBT Psychoeducation Supportive therapy, individual therapy Clonidine when necessary Methadone taper Cocaine use disorder severe Monitor signs and symptoms Use [place] for abstinence Estimated Date of D/C: 03/31/17 - Smoking Cessation Smoking Cessation Initiated: No
--- NOTE | 2017-03-26 06:41 | CARD ---
APPROVED REPORT EKG Measurement Heart [id number] <Conclusion> Normal sinus rhythm Normal ECG
--- NOTE | 2017-03-26 23:09 | PCM.PYCHPN ---
Psychiatric Progress Note - Psychiatric Progress Note Patient seen today, length of contact: 15 minutes Patient Chief Complaint: I m feeling little better.' Problems Identified/Issues Discussed: Patient seen and evaluated, chart reviewed and discussed with the nurse. As per the staff, pt remained isolated, confined and withdrawn. He reports improvement in his mood, but still appears depressed and withdrawn. He reports some improvement in the voices and sleep. He wants to go to the rehab to stay clean. Patient is compliant with medications and denies any side effects. Symptoms are improving but need more time to stabilize. Support and psychoeducation given. Medication Change: Yes (Increase Paxil) Medical Record Reviewed: Yes Mental Status Examination - Cognitive Function Orientation: Person, Place, Situation, Time Memory: Intact Attention: WNL Concentration: Poor Association: WNL Fund of Knowledge: Poor - Mood Mood: Depressed (Less than before), Anxious - Affect Affect: Constricted, Depressed - Speech Speech: Appropriate - Formal Thought Process Formal Thought Process: No Impairment - Suicidal Ideation Suicidal Ideation: No - Homicidal Ideation Homicidal Ideation: No Goal/Treatment Plan - Goal/Treatment Plan Need for Continued Stay: Remain at risks for inpatient hospitalization, Discharge may exacerbated symptoms, Severe functional impairment Progress Toward Problem(s) and Goals/Treatment Plan: Bipolar disorder depressed severe with psychotic features CBT Psychoeducation Supportive therapy, group therapy, individual therapy Paxil 20 mg PO Daily Seroquel 100 mg by mouth QHS Trazodone 100 mg by mouth daily at bedtime Opioid use disorder severe CBT Psychoeducation Supportive therapy, individual therapy Use [place] for abstinence Opioid withdrawal CBT Psychoeducation Supportive therapy, individual therapy Clonidine when necessary Methadone taper Cocaine use disorder severe Monitor signs and symptoms Use [place] for abstinence Estimated Date of D/C: 03/31/17 - Smoking Cessation Smoking Cessation Initiated: No
--- NOTE | 2017-03-27 11:39 | PCM.PYCHPN ---
Psychiatric Progress Note - Psychiatric Progress Note Patient seen today, length of contact: 15 minutes Patient Chief Complaint: feeling okay today Problems Identified/Issues Discussed: Patient seen and evaluated, chart reviewed and discussed with the nurse. As per the staff, patient continues to remain isolated, confined and withdrawn. He reports improvement in his mood, but still appears depressed and withdrawn. He reports some improvement in the voices and in his sleep. He wants to go to the rehab to stay clean. Patient is compliant with medications and denies any side effects. Symptoms are improving but need more time to stabilize. Support and psychoeducation given. Medication Change: Yes (Increase Paxil) Medical Record Reviewed: Yes Mental Status Examination - Cognitive Function Orientation: Person, Place, Situation, Time Memory: Intact Attention: WNL Concentration: Poor Association: WNL Fund of Knowledge: Poor - Mood Mood: Depressed (Less than before), Anxious - Affect Affect: Constricted, Depressed - Speech Speech: Appropriate - Formal Thought Process Formal Thought Process: No Impairment - Suicidal Ideation Suicidal Ideation: No - Homicidal Ideation Homicidal Ideation: No Goal/Treatment Plan - Goal/Treatment Plan Need for Continued Stay: Remain at risks for inpatient hospitalization, Discharge may exacerbated symptoms, Severe functional impairment Progress Toward Problem(s) and Goals/Treatment Plan: Bipolar disorder depressed severe with psychotic features -CBT -Psychoeducation -Supportive therapy, group therapy, individual therapy -Paxil 20 mg PO Daily -Seroquel 100 mg by mouth QHS -Trazodone 100 mg by mouth daily at bedtime Opioid use disorder severe -CBT -Psychoeducation -Supportive therapy, individual therapy -Use [place] for abstinence Opioid withdrawal -CBT -Psychoeducation -Supportive therapy, individual therapy -Clonidine when necessary -Methadone taper (completed) Cocaine use disorder severe -Monitor signs and symptoms -Use [facility] for abstinence DW Dr. Cooney, Lizzie Pozo, DO PGY-1 Estimated Date of D/C: 03/31/17
--- NOTE | 2017-03-28 09:49 | PCM.BM ---
<InoVelma Stevens - Last Filed: 03/28/17 09:49> Treatment Plan Problems - Problems identified on initial assessmt Depression Date Initiated: 03/20/17 Time Initiated: 20:24 Assessment reference: NA Status: Active Comment: hx of heroin abuse (does 30 bags intranasal daily) Treatment assets and liabiliti Patient Assests: cooperative, negotiates basic needs, cognitively intact Patient Liabilities: live alone, poor support system, substance abuse, medical problems - Milieu Protocol Maintain good personal hygiene: daily Encourage regular showers, daily Remind patient to perform daily oral care Conduct patient checks and document Observation sheet: Q15 minutes Maintain personal safety: every shift Educate patient to report safety concerns to staff, every shift Monitor environment for contraband/sharps Medication safety: Monitor for expected outcome, potential side effects: every shift, Assess barriers to learning: every shift, Assess readiness for medication education: every shift Milieu Narrative: Bipolar disorder depressed severe with psychotic features -CBT -Psychoeducation -Supportive therapy, group therapy, individual therapy -Paxil 20 mg PO Daily -Seroquel 100 mg by mouth QHS -Trazodone 100 mg by mouth daily at bedtime Opioid use disorder severe -CBT -Psychoeducation -Supportive therapy, individual therapy -Use [place] for abstinence Opioid withdrawal -CBT -Psychoeducation -Supportive therapy, individual therapy -Clonidine when necessary -Methadone taper (completed) Cocaine use disorder severe -Monitor signs and symptoms -Use [place] for abstinence DW Dr. Cooney, Lizzie Pozo, DO PGY-1 Family Contact Family involvement: Famliy/SO not involved - Goals for Treatment Patient goals for treatment: "I want to go to rehab." Discharge/Continuing Care - Education Needs Education Needs: Patient Medication, Patient Coping Skills, Patient Placement options, Patient Community resources - Discharge Discharge Criteria: Tolerates medication w/o severe side effects, No longer exhibiting s/s of withdrawal, Reduction of target symptoms Discharge to:: Substance Abuse Rehab - Treatment Team Participation Patient/Family/SO Statement: Bipolar disorder depressed severe with psychotic features -CBT -Psychoeducation -Supportive therapy, group therapy, individual therapy -Paxil 20 mg PO Daily -Seroquel 100 mg by mouth QHS -Trazodone 100 mg by mouth daily at bedtime Opioid use disorder severe -CBT -Psychoeducation -Supportive therapy, individual therapy -Use [place] for abstinence Opioid withdrawal -CBT -Psychoeducation -Supportive therapy, individual therapy -Clonidine when necessary -Methadone taper (completed) Cocaine use disorder severe -Monitor signs and symptoms -Use [place] for abstinence DW Dr. Cooney, Lizzie Pozo, PGY-1 Discussed with Family/SO: No Was Patient/Family/SO present at Treatment Team Meeting: Yes Treatment Plan Review - Problem Depression Time Initiated: 20:24 - Discharge / Continuing Care Discharge to:: Substance Abuse Rehab Behavioral Health Services: Residential treatment Health Needs: Medications/Rx, Alcohol/Drug treatment <Rocio Cooney - Last Filed: 03/28/17 11:16> - Diagnosis (1) Bipolar affective disorder, depressed, severe, with psychotic behavior Status: Acute Interventions: 03/28/17 11:16 * Assess/adjust medications daily and /or as needed * See patient on an individual basis 7x/week to assess level of manic behaviors and stability * Discuss risks, benefits, side effects and alternatives of medications * (2) Opiate abuse, continuous Status: Acute Interventions: 03/28/17 11:17 * Assess 7x/week regarding severity of withdrawal * Educate regarding risks, benefits, side effects and alternatives of medications * Use Motivational Interviewing for abstinence * Use CBT for relapse prevention * Medication management for withdrawal symptoms * Encourage medication assisted treatment * <Maru Anderson - Last Filed: 03/28/17 12:06> Treatment Plan Review - Problem Depression Date Initiated: 03/28/17 Time Initiated: 12:06 Progress toward outcomes: improved
--- NOTE | 2017-03-28 11:28 | PCM.PYCHPN ---
Psychiatric Progress Note - Psychiatric Progress Note Patient seen today, length of contact: 15 minutes Patient Chief Complaint: I m feeling little better.' Problems Identified/Issues Discussed: Patient seen and evaluated, chart reviewed and discussed with the nurse. As per the staff, pt remained isolated, confined and withdrawn. He reports improvement in his mood, but still appears depressed and withdrawn. He reports some improvement in the voices and sleep. He wants to go to the rehab to stay clean. Patient is compliant with medications and denies any side effects. Symptoms are improving but need more time to stabilize. Support and psychoeducation given. Medication Change: Yes (Increase Paxil) Medical Record Reviewed: Yes Mental Status Examination - Cognitive Function Orientation: Person, Place, Situation, Time Memory: Intact Attention: WNL Concentration: Poor Association: WNL Fund of Knowledge: Poor - Mood Mood: Depressed (Less than before), Anxious - Affect Affect: Constricted, Depressed - Speech Speech: Appropriate - Formal Thought Process Formal Thought Process: No Impairment - Suicidal Ideation Suicidal Ideation: No - Homicidal Ideation Homicidal Ideation: No Goal/Treatment Plan - Goal/Treatment Plan Need for Continued Stay: Remain at risks for inpatient hospitalization, Discharge may exacerbated symptoms, Severe functional impairment Progress Toward Problem(s) and Goals/Treatment Plan: Bipolar disorder depressed severe with psychotic features CBT Psychoeducation Supportive therapy, group therapy, individual therapy Paxil 20 mg PO Daily Seroquel 100 mg by mouth QHS Trazodone 100 mg by mouth daily at bedtime Opioid use disorder severe CBT Psychoeducation Supportive therapy, individual therapy Use [place] for abstinence Opioid withdrawal CBT Psychoeducation Supportive therapy, individual therapy Clonidine when necessary Methadone taper Cocaine use disorder severe Monitor signs and symptoms Use [place] for abstinence Estimated Date of D/C: 03/31/17
[2017-03-29 07:26] VITALS: O2SAT 97
--- NOTE | 2017-03-29 09:49 | PCM.PYCHPN ---
Psychiatric Progress Note - Psychiatric Progress Note Patient seen today, length of contact: 15 minutes Patient Chief Complaint: I m feeling little better.' Problems Identified/Issues Discussed: Patient seen and evaluated, chart reviewed and discussed with the nurse. As per the staff, pt remained isolated, confined and withdrawn. He reports improvement in his mood, but still appears depressed and withdrawn. He reports some improvement in the voices and sleep. He wants to go to the rehab to stay clean. Patient is compliant with medications and denies any side effects. Symptoms are improving but need more time to stabilize. Support and psychoeducation given. Medication Change: Yes (Increase Paxil) Medical Record Reviewed: Yes Mental Status Examination - Cognitive Function Orientation: Person, Place, Situation, Time Memory: Intact Attention: WNL Concentration: Poor Association: WNL Fund of Knowledge: Poor - Mood Mood: Depressed (Less than before), Anxious - Affect Affect: Constricted, Depressed - Speech Speech: Appropriate - Formal Thought Process Formal Thought Process: No Impairment - Suicidal Ideation Suicidal Ideation: No - Homicidal Ideation Homicidal Ideation: No Goal/Treatment Plan - Goal/Treatment Plan Need for Continued Stay: Remain at risks for inpatient hospitalization, Discharge may exacerbated symptoms, Severe functional impairment Progress Toward Problem(s) and Goals/Treatment Plan: Bipolar disorder depressed severe with psychotic features CBT Psychoeducation Supportive therapy, group therapy, individual therapy Paxil 20 mg PO Daily Seroquel 100 mg by mouth QHS Trazodone 100 mg by mouth daily at bedtime Opioid use disorder severe CBT Psychoeducation Supportive therapy, individual therapy Use [place] for abstinence Opioid withdrawal CBT Psychoeducation Supportive therapy, individual therapy Clonidine when necessary Methadone taper Cocaine use disorder severe Monitor signs and symptoms Use [place] for abstinence Estimated Date of D/C: 03/31/17
--- NOTE | 2017-03-30 11:51 | PCM.PYCHPN ---
Psychiatric Progress Note - Psychiatric Progress Note Patient seen today, length of contact: 15 minutes Patient Chief Complaint: I m feeling little better.' Problems Identified/Issues Discussed: Patient seen and evaluated, chart reviewed and discussed with the nurse. As per the staff, pt remained isolated, confined and withdrawn. He reports improvement in his mood, but still appears depressed and withdrawn. He reports some improvement in the voices and sleep. He wants to go to the rehab to stay clean. Patient is compliant with medications and denies any side effects. Symptoms are improving but need more time to stabilize. Support and psychoeducation given. Medication Change: Yes (Increase Paxil) Medical Record Reviewed: Yes Mental Status Examination - Cognitive Function Orientation: Person, Place, Situation, Time Memory: Intact Attention: WNL Concentration: Poor Association: WNL Fund of Knowledge: Poor - Mood Mood: Depressed (Less than before), Anxious - Affect Affect: Constricted, Depressed - Speech Speech: Appropriate - Formal Thought Process Formal Thought Process: No Impairment - Suicidal Ideation Suicidal Ideation: No - Homicidal Ideation Homicidal Ideation: No Goal/Treatment Plan - Goal/Treatment Plan Need for Continued Stay: Remain at risks for inpatient hospitalization, Discharge may exacerbated symptoms, Severe functional impairment Progress Toward Problem(s) and Goals/Treatment Plan: Bipolar disorder depressed severe with psychotic features CBT Psychoeducation Supportive therapy, group therapy, individual therapy Paxil 20 mg PO Daily Seroquel 100 mg by mouth QHS Trazodone 100 mg by mouth daily at bedtime Opioid use disorder severe CBT Psychoeducation Supportive therapy, individual therapy Use [place] for abstinence Opioid withdrawal CBT Psychoeducation Supportive therapy, individual therapy Clonidine when necessary Methadone taper Cocaine use disorder severe Monitor signs and symptoms Use [place] for abstinence Estimated Date of D/C: 03/31/17
[2017-03-31 07:58] VITALS: BP 121/74; PULSE 67; RESP 16; TEMP 98.2
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
== END 2017-03-31 10:50 | disposition home or self-care (01) | DRG 430 ==
LOC: C.ER 14:12 → C.9E 19:06 → C.5E 19:24
PROVIDERS: ADMIT Psychiatry & Neurology Psychiatry; ATTEND Psychiatry & Neurology Psychiatry
PROC: GZHZZZZ Group Psychotherapy (ICD-10-PCS; principal; 2017-03-20)
PROC: GZ58ZZZ Individual Psychotherapy, Cognitive-Behavioral (ICD-10-PCS; 2017-03-20)
PROC: GZ56ZZZ Individual Psychotherapy, Supportive (ICD-10-PCS; 2017-03-20)
PROC: HZ32ZZZ Individual Counseling for Substance Abuse Treatment, Cognitive-Behavioral (ICD-10-PCS; 2017-03-20)
PROC: HZ46ZZZ Group Counseling for Substance Abuse Treatment, Psychoeducation (ICD-10-PCS; 2017-03-20)
PROC: HZ59ZZZ Individual Psychotherapy for Substance Abuse Treatment, Supportive (ICD-10-PCS; 2017-03-20)
DX: F31.5 Bipolar disorder, current episode depressed, severe, with psychotic features (principal); F14.20 Cocaine dependence, uncomplicated; R45.851 Suicidal ideations; F11.23 Opioid dependence with withdrawal; N39.0 Urinary tract infection, site not specified; J45.909 Unspecified asthma, uncomplicated; N43.3 Hydrocele, unspecified; Z59.0 Homelessness; Z79.899 Other long term (current) drug therapy; Z91.5 Personal history of self-harm; R31.9 Hematuria, unspecified; R36.9 Urethral discharge, unspecified

== ENCOUNTER 2018-04-22 16:48 | Inpatient (IN) | payer MEDICAID, OTHER ==
[2018-04-22 16:49] VITALS: BMI 34.4
[2018-04-22] MEDS ORDERED: Albuterol-Ipratrop 3 mg / 0.5 (3 ml) UD ONE (17:22)
[2018-04-22] MEDS ORDERED: Albuterol 0.083% Inhal Sol (2.5 mg/3 mL) UD IH STA ×2 (17:24→20:23)
[2018-04-22] MEDS ORDERED: Albuterol-Ipratrop 3 mg / 0.5 (3 ml) UD IH STA (17:24)
[2018-04-22] MEDS ORDERED: Albuterol 0.083% Inhal Sol (2.5 mg/3 mL) UD ONE (17:41)
[2018-04-22 17:44] LABS: BASO # 0.1 K/uL (0.0-0.2); BASO % 0.7 % (0.0-2.0); EOS # 0.7 K/uL (0.0-0.7); EOS % 5.8 % (0.0-4.0); HEMOGLOBIN 14.3 g/dL (12.0-18.0); LYMPH # 1.8 K/uL (1.0-4.3); LYMPH % 15.5 % (20.0-40.0); MEAN CELL VOLUME 89.4 fL (80.0-94.0); MEAN CORPUSCULAR HEMOGLOBIN 28.5 pg (27.0-31.0); MEAN CORPUSCULAR HGB CONC 31.9 g/dL (33.0-37.0); MEAN PLATELET VOLUME 8.8 fL (7.2-11.7); MONO # 0.9 K/uL (0.0-0.8); MONO % 7.4 % (0.0-10.0); NEUT # 8.2 K/uL (1.8-7.0); NEUT % 70.6 % (50.0-75.0); RBC 5.02 Mil/uL (4.40-5.90); WHITE BLOOD COUNT 11.6 K/uL (4.8-10.8)
[2018-04-22 17:50] LABS: ALB/GLOB RATIO 1.3 (1.0-2.1); ALBUMIN 4.5 g/dL (3.5-5.0); ALT/SGPT 42 U/L (21-72); AST/SGOT 29 U/L (17-59); BLOOD UREA NITROGEN 9 mg/dL (9-20); CALCIUM 8.7 mg/dl (8.6-10.4); GFR NON-AFRICAN AMERICAN > 60
--- NOTE | 2018-04-22 18:00 | RAD ---
Date of service: 04/22/2018 HISTORY: SOB COMPARISON: Comparison chest 03/20/2017. FINDINGS: LUNGS: Increased and coarsened interstitial markings particularly in the mid to lower lung zones.. Findings may represent sequela of reactive-inflammatory airway disease or viral illness. PLEURA: No significant pleural effusion identified, no pneumothorax apparent. CARDIOVASCULAR: No aortic atherosclerotic calcification present. Normal cardiac size. No pulmonary vascular congestion. OSSEOUS STRUCTURES: No significant abnormalities. VISUALIZED UPPER ABDOMEN: Normal. OTHER FINDINGS: None. IMPRESSION: Increased and coarsened interstitial markings particularly in the mid to lower lung zones.. Findings may represent sequela of reactive-inflammatory airway disease or viral illness.
--- NOTE | 2018-04-22 19:23 | C.PDOC ---
History Of Present Illness 42 year old male presents to ED with complaint of wheezing for several weeks. He has a past history of asthma but is not currently on any medication. Patient states the wheezing has been occurring day and night, he can't sleep, and it has gotten progressively worse. 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 Patient has not been taking any medication at home. He denies fever, chills, and sputum. Time Seen by Provider: 04/22/18 16:56 Chief Complaint (Nursing): Shortness Of Breath History Per: Patient History/Exam Limitations: no limitations Onset/Duration Of Symptoms: Persistent, Worse Since, Other (several weeks) Current Symptoms Are (Timing): Worse Associated Symptoms: denies: Fever, Chills, Chest Pain, Productive Cough Past Medical History Reviewed: Historical Data, Nursing Documentation, Vital Signs Vital Signs: Last Vital Signs Temp 98.1 F 04/22/18 19:14 Pulse 89 04/22/18 19:14 Resp 17 04/22/18 19:14 BP 148/78 04/22/18 19:14 Pulse Ox 94 L 04/22/18 19:14 - Medical History PMH: Asthma, Back Problems, Bronchitis, Depression, Fractures (jaw), HTN Denies: Diabetes, Hepatitis, HIV, Seizures, Sexually Transmitted Disease Surgical History: No Surg Hx - [facility] Procedures DETOXIFICATION SERVICES FOR SUBSTANCE ABUSE TREATMENT (10/16/16) GROUP JEWELRY SALES FOR SUBSTANCE ABUSE TREATMENT, PSYCHOEDUCATION (03/20/17) GROUP JEWELRY SALES FOR SUBSTANCE ABUSE, COGNITIVE BEHAVIORAL (10/16/16) GROUP PSYCHOTHERAPY (03/20/17) INDIV JEWELRY SALES FOR SUBSTANCE ABUSE, COGNITIVE BEHAVIORAL (03/20/17) INDIV PSYCHOTHERAPY FOR SUBSTANCE ABUSE TREATMENT, SUPPORT (03/20/17) INDIV PSYCHOTHERAPY FOR SUBSTANCE ABUSE, COGNITIV BEHAVIORAL (10/16/16) INDIV PSYCHOTHERAPY FOR SUBSTANCE ABUSE, PSYCHOEDUCATION (10/16/16) INDIVIDUAL PSYCHOTHERAPY, COGNITIVE-BEHAVIORAL (03/20/17) INDIVIDUAL PSYCHOTHERAPY, SUPPORTIVE (03/20/17) Family History: States: Unknown Family Hx - Social History Hx Alcohol Use: Yes Hx Substance Use: No - Immunization History Hx Tetanus Toxoid Vaccination: No Hx Influenza Vaccination: Yes Hx Pneumococcal Vaccination: No Review Of Systems Constitutional: Negative for: Fever, Chills, Weakness Cardiovascular: Negative for: Chest Pain, Palpitations Respiratory: Positive for: Wheezing. Negative for: Cough, Shortness of Breath, Sputum Musculoskeletal: Negative for: Back Pain Neurological: Negative for: Weakness, Numbness, Dizziness Physical Exam - Physical Exam Appears: Well, Non-toxic, No Acute Distress Skin: Normal Color, Warm, Dry Head: Atraumatic, Normacephalic Neck: Normal ROM, Supple Chest: Symmetrical, No Deformity Cardiovascular: Rhythm Regular Respiratory: Wheezing (audible) Gastrointestinal/Abdominal: Soft, No Tenderness Extremity: Capillary Refill (<2 seconds) Neurological/Psych: Oriented x3, Normal Speech, Normal Cognition ED Course And Treatment - Laboratory Results Result Diagrams: 04/22/18 17:32 04/22/18 17:32 Lab Results: Total Bilirubin 0.3 mg/dL (0.2-1.3) 04/22/18 17:32 AST 29 U/L (17-59) 04/22/18 17:32 ALT 42 U/L (21-72) 04/22/18 17:32 Alkaline Phosphatase 87 U/L (38-126) 04/22/18 17:32 Total Protein 8.1 g/dL (6.3-8.3) 04/22/18 17:32 Albumin 4.5 g/dL (3.5-5.0) 04/22/18 17:32 Globulin 3.6 gm/dL (2.2-3.9) 04/22/18 17:32 Albumin/Globulin Ratio 1.3 (1.0-2.1) 04/22/18 17:32 Lab Interpretation: No Acute Changes ECG: Interpreted By Me ECG Rhythm: Sinus Rhythm (with occasional PVC) O2 Sat by Pulse Oximetry: 94 Pulse Ox Interpretation: Abnormal - Other Rad CXR X-Ray: Interpreted by Me, Viewed By Me Interpretation: Accession No. : [id number]. Patient Name / ID : DINORA BROWN / [id number]. Exam Date : 04/22/2018 17:37:09 ( Approved ). Study Comment : Sex / Age : M / 42Y. Creator : Gloria Christianson. Dictator : Masoud Miller MD. Ecosystem Ecology Professor : Unix Analyst : Masoud Miller MD. Approver2 : Report Date : 04/22/2018 17:43:26. My Comment : . Date of service: 04/22/2018. HISTORY: SOB. COMPARISON: Comparison chest 03/20/2017. FINDINGS: LUNGS: Increased and coarsened interstitial markings particularly in the mid to lower lung zones.. Findings may represent sequela of reactive-inflammatory airway disease or viral illness. PLEURA: No significant pleural effusion identified, no pneumothorax apparent. CARDIOVASCULAR: No aortic atherosclerotic calcification present. Normal cardiac size. No pulmonary vascular congestion. OSSEOUS STRUCTURES: No significant abnormalities. VISUALIZED UPPER ABDOMEN: Normal. OTHER FINDINGS: None. IMPRESSION: Increased and coarsened interstitial markings particularly in the mid to lower lung zones.. Findings may represent sequela of reactive- inflammatory airway disease or viral illness. Progress Note: 8:30 PM Patient states he feels much better. Lungs with improved aeration after several nebulizer treatments and IV solumedrol. Persistent inspiratory and expiratory wheezing noted. Additional treatments ordered. 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 Discussed with Dr Valentine. Orders given to nurses. Medical Decision Making Medical Decision Making: Impression: 42 year old male with wheezing. Plan: EKG and CXR ordered for patient. Patient given Albuterol INH and Solu- Medrol IVP. CBC and CMP ordered for patient. Disposition - Disposition Disposition: HOSPITALIZED Disposition Time: 21:46 Condition: IMPROVED - POA Present On Arrival: None - Clinical Impression Clinical Impression: Exacerbation of asthma - Scribe Statement The provider has reviewed the documentation as recorded by the Scribe (Ev Santana) All medical record entries made by the Scribe were at my direction and personally dictated by me. I have reviewed the chart and agree that the record accurately reflects my personal performance of the history, physical exam, medical decision making, and the department course for this patient. I have also personally directed, reviewed, and agree with the discharge instructions and disposition.
[2018-04-22] MEDS ORDERED: Albuterol 0.042% Inhal Sol (1.25 mg/3 mL) UD ONE (20:28)
[2018-04-22] MEDS ORDERED: MethylPREDNISolone 40 mg Vial IVP STA (21:50)
[2018-04-23] MEDS: Promethazine 12.5 mg/10 ml Syrup PO PRN ×2 (02:00→13:39)
[2018-04-23] MEDS: Albuterol-Ipratrop 3 mg / 0.5 (3 ml) UD INH SCH ×7 (05:50→23:53)
[2018-04-23] MEDS ORDERED: MethylPREDNISolone 40 mg Vial IVP SCH (06:00)
[2018-04-23 08:13] LABS: BASO % 0.1 % (0.0-2.0); LYMPH # 0.6 K/uL (1.0-4.3); LYMPH % 7.6 % (20.0-40.0); MEAN CELL VOLUME 89.8 fL (80.0-94.0); MEAN CORPUSCULAR HEMOGLOBIN 29.3 pg (27.0-31.0); MEAN CORPUSCULAR HGB CONC 32.7 g/dL (33.0-37.0); MONO # 0.1 K/uL (0.0-0.8); MONO % 0.7 % (0.0-10.0); NEUT # 7.5 K/uL (1.8-7.0); NEUT % 91.6 % (50.0-75.0); NRBC % 0.1 % (0.0-2.0); PLATELET COUNT 371 K/uL (130-400); RBC 4.79 Mil/uL (4.40-5.90); WHITE BLOOD COUNT 8.2 K/uL (4.8-10.8)
[2018-04-23 08:18] LABS: ALB/GLOB RATIO 1.3 (1.0-2.1); ALBUMIN 4.3 g/dL (3.5-5.0); ALT/SGPT 34 U/L (21-72); AST/SGOT 28 U/L (17-59); BLOOD UREA NITROGEN 13 mg/dL (9-20); CALCIUM 9.4 mg/dl (8.6-10.4); GFR NON-AFRICAN AMERICAN > 60
[2018-04-23 09:28] LABS: LYMPHOCYTE 9 % (20-40); MONOCYTE 1 % (0-10); NEUTROPHIL 90 % (50-75); PLATELET ESTIMATE NORMAL (NORMAL); TOTAL CELLS COUNTED 100
[2018-04-23] MEDS: Enoxaparin 40 mg Syringe SC SCH (10:06)
--- NOTE | 2018-04-23 10:15 | PCM.PSYCH ---
Initial Psychiatric Evaluation - Initial Psychiatric Evaluation Type of Admission: Voluntary Legal Status: Capacity Chief Complaint (in patient's own words): I am withdrawing from heroin History of Present Illness and Precipitating Events: 42 year old male presents to ED with complaint of wheezing for several weeks. He has a past history of asthma but is not currently on any medication. Today psychiatry was consulted. 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 Patient states he tried to alleviate his symptoms with several over the counter medications: theraflu, NyQuil, and cough syrup. Patient denies any hallucinations (auditory or visual). He denies suicidal ideation, but admits to feeling depressed 10 out of the last 14 days, not sleeping well, losing interest in normal activities, and having low energy. Patient denies guilt and states he has a good appetite. Patient states he often uses drugs because it is a way to occupy himself/pass the time. He states he is now prioritizing housing and employment over drugs, but he is still using. Patient is concerned about discharge timing, since he must make a child support payment (which he has funds for) by tomorrow, to remain in good standing with the law. Patient complains of nausea, diarrhea, headache. PMH: Hypertension, asthma PSH: Repair of broken jaw Meds: unspecified antihypertensive Hospitalizations: Was admitted to [facility] 1 year ago for opiate use disorder. He admits to a previous suicide attempt, but refused to discuss it Housing: patient sleeps at alf and is otherwise homeless. Drugs: patient has history of using heroin, cocaine, adderol, MDMA, marijuana, and PCP. He states he no longer uses the last two listed, but prior to admission he had used 2 bags of heroin, as well as cocaine. Current Medications: Active Medications Generic Name Dose Route Start Last Admin Trade Name Freq PRN Reason Stop Dose Admin Albuterol/Ipratropium 3 ml 04/23/18 00:00 04/23/18 07:50 Duoneb 3 Mg/0.5 Mg (3 Ml) Ud INH 3 ml RQ4 ELIJAH Administration Enoxaparin Sodium 40 mg 04/23/18 10:00 04/23/18 10:06 Lovenox SC Not Given DAILY ELIJAH Influenza Virus Vaccine 60 mcg 04/25/18 10:00 Flucelvax Quad [id number] Syr IM 04/25/18 10:01 .ONCE ONE Methylprednisolone 60 mg 04/23/18 01:15 04/23/18 05:52 Solu-Medrol IVP 60 mg Q6 ELIJAH Administration Pneumococcal Polyvalent Vaccine 0.5 ml 04/25/18 10:00 Pneumovax 23 Vaccine IM 04/25/18 10:01 .ONCE ONE Promethazine HCl 12.5 mg 04/23/18 01:17 04/23/18 02:00 Phenergan Syrup PO 12.5 mg Q6 PRN Administration Dry nasal passages Past Psychiatric History - Past Psychiatric History Previous Treatment History: Inpatient Pertinent Medical Hx (Current Medical&Sleep Prob, Allergies): Allergies Allergy/AdvReac Type Severity Reaction Status Date / Time No Known Allergies Allergy Verified 03/20/17 15:01 Albuterol HFA [Ventolin HFA 90 mcg/actuation (8 g)] 1 puff IH BID PRN #1 unit 08/14/15 Azithromycin [Zithromax] 250 mg PO DAILY #6 tablet 08/14/15 Methylprednisolone [Medrol] 4 mg PO TITR #1 unit 08/14/15 Benztropine [Cogentin] 1 mg PO HS PRN #30 tab 10/23/16 Divalproex [Depakote DR] 500 mg PO BID #60 tcp 10/23/16 Haloperidol [Haldol] 10 mg PO HS #30 tab 10/23/16 traZODone [Desyrel] 100 mg PO HS #30 tab 10/23/16 Ciprofloxacin [Cipro] 500 mg PO BID 1 Days tab 03/31/17 PARoxetine [Paxil] 20 mg PO DAILY #30 tab 03/31/17 QUEtiapine [Seroquel] 100 mg PO HS #30 tab 03/31/17 traZODone [Desyrel] 200 mg PO HS PRN #30 tab 03/31/17 Review of Systems - Review of Systems All systems: reviewed and no additional remarkable complaints except - Psychiatric Psychiatric: Anxiety, Irritability. absent: Suicidal Ideation Mental Status Examination - Personal Presentation Personal Presentation: Looks stated age - Affect Affect: Constricted - Motor Activity Motor Activity: Calm - Reliability in Providing Information Reliability in Providing Information: Good - Speech Speech: Organized - Mood Mood: Anxious - Formal Thought Process Formal Thought Process: No Impairment - Obsessions/Compulsions Obsessions: No Compulsions: No - Cognitive Functions Orientation: Person, Place, Situation, Time Sensorium: Alert Attention/Concentration: Attentive Abstract Thinking: [place] Estimate of Intelligence: Below average Judgement: Imparied, as evidence by: Poor judgement, Intact, as evidence by: Insight regarding need for hospitalization - Risk Risk: Withdrawal, Diminished functioning - Limitations Limitations: Living alone DSM 5 DX - DSM 5 DSM 5 Diagnosis: Opioid use disorder severe Opioid withdrawal - Recommended/Plan of Treatment Treatment Recommendations and Plan of Treatment: Supportive therapy Psychoeducation Patient psychiatrically stable and cleared
[2018-04-23] MEDS ORDERED: Promethazine 12.5 mg/10 ml Syrup PO PRN (13:24)
--- NOTE | 2018-04-23 14:28 | CP.PCM.HP ---
History of Present Illness - History of Present Illness History of Present Illness: 42 year old male presents to ED with complaint of wheezing for several weeks. He has a past history of asthma but is not currently on any medication. Patient states the wheezing has been occurring day and night, he can't sleep, and it has gotten progressively worse. Present on Admission - Present on Admission Any Indicators Present on Admission: No Review of Systems - Review of Systems All systems: reviewed and no additional remarkable complaints except (wheezing) Past Patient History - Past Social History Smoking Status: Heavy Smoker > 10 Cigarettes Daily - CARDIAC Hx Cardiac Disorders: Yes Hx Hypertension: Yes - PULMONARY Hx Respiratory Disorders: Yes Hx Asthma: Yes Hx Bronchitis: Yes - NEUROLOGICAL Hx Neurological Disorder: No Hx Seizures: No - HEENT Hx HEENT Problems: No - RENAL Hx Chronic Kidney Disease: No - ENDOCRINE/METABOLIC Hx Endocrine Disorders: No - HEMATOLOGICAL/ONCOLOGICAL Hx Blood Disorders: No Hx Human Immunodeficiency Virus (HIV): No - INTEGUMENTARY Hx Dermatological Problems: No - MUSCULOSKELETAL/RHEUMATOLOGICAL Hx Falls: No - GASTROINTESTINAL Hx Gastrointestinal Disorders: No - GENITOURINARY/GYNECOLOGICAL Hx Genitourinary Disorders: No Hx Sexually Transmitted Disorders: No - PSYCHIATRIC Hx Substance Use: Yes - SURGICAL HISTORY Hx Surgeries: Yes Other/Comment: Jaw fracture. - ANESTHESIA Hx Anesthesia: Yes Hx Anesthesia Reactions: No Meds Allergies/Adverse Reactions: Allergies Allergy/AdvReac Type Severity Reaction Status Date / Time No Known Allergies Allergy Verified 03/20/17 15:01 Physical Exam - Head Exam Head Exam: ATRAUMATIC, NORMAL INSPECTION, NORMOCEPHALIC - Eye Exam Eye Exam: EOMI, Normal appearance, PERRL Pupil Exam: NORMAL ACCOMODATION, PERRL - ENT Exam ENT Exam: Mucous Membranes Dry - Neck Exam Neck exam: Positive for: Normal Inspection - Respiratory Exam Respiratory Exam: Accessory Muscle Use, Rhonchi, Wheezes - Cardiovascular Exam Cardiovascular Exam: REGULAR RHYTHM - GI/Abdominal Exam GI & Abdominal Exam: Normal Bowel Sounds, Soft. absent: Tenderness - Extremities Exam Extremities exam: Positive for: normal inspection Results - Vital Signs Recent Vital Signs: Last Vital Signs Temp 98.0 F 04/22/18 22:45 Pulse 74 04/22/18 22:45 Resp 18 04/22/18 22:45 BP 143/78 04/22/18 22:45 Pulse Ox 92 L 04/23/18 02:38 - Labs Result Diagrams: 04/23/18 07:50 04/23/18 07:50 Labs: Laboratory Results - last 24 hr 04/22/18 04/22/18 04/23/18 17:32 17:32 07:50 WBC 11.6 H 8.2 RBC 5.02 4.79 Hgb 14.3 D 14.0 Hct 44.9 43.0 MCV 89.4 89.8 MCH 28.5 29.3 MCHC 31.9 L 32.7 L RDW 14.0 14.0 Plt Count 338 371 MPV 8.8 9.0 Neut % (Auto) 70.6 91.6 H Lymph % (Auto) 15.5 L 7.6 L [place] % (Auto) 7.4 0.7 Eos % (Auto) 5.8 H 0.0 Baso % (Auto) 0.7 0.1 Neut # (Auto) 8.2 H 7.5 H Lymph # (Auto) 1.8 0.6 L [place] # (Auto) 0.9 H 0.1 Eos # (Auto) 0.7 0.0 Baso # (Auto) 0.1 0.0 Neutrophils % (Manual) 90 H Lymphocytes % (Manual) 9 L Monocytes % (Manual) 1 Platelet Estimate Normal Sodium 139 Potassium 3.8 Chloride 99 Carbon Dioxide 31 H Anion Gap 13 BUN 9 Creatinine 0.8 Est GFR ( Amer) > 60 Est GFR (Non-Af Amer) > 60 Random Glucose 116 H Calcium 8.7 Total Bilirubin 0.3 AST 29 ALT 42 Alkaline Phosphatase 87 Total Protein 8.1 Albumin 4.5 Globulin 3.6 Albumin/Globulin Ratio 1.3 04/23/18 07:50 WBC RBC Hgb Hct MCV MCH MCHC RDW Plt Count MPV Neut % (Auto) Lymph % (Auto) [place] % (Auto) Eos % (Auto) Baso % (Auto) Neut # (Auto) Lymph # (Auto) [place] # (Auto) Eos # (Auto) Baso # (Auto) Neutrophils % (Manual) Lymphocytes % (Manual) Monocytes % (Manual) Platelet Estimate Sodium 137 Potassium 4.2 Chloride 101 Carbon Dioxide 29 Anion Gap 12 BUN 13 Creatinine 0.7 L Est GFR ( Amer) > 60 Est GFR (Non-Af Amer) > 60 Random Glucose 141 H D Calcium 9.4 Total Bilirubin 0.2 AST 28 ALT 34 Alkaline Phosphatase 85 Total Protein 7.6 Albumin 4.3 Globulin 3.3 Albumin/Globulin Ratio 1.3 Assessment & Plan (1) Asthma attack Status: Acute (2) Bipolar affective disorder, depressed, severe, with psychotic behavior Status: Chronic (3) Depression Status: Chronic
[2018-04-23] MEDS: Petrolatum Oint Foilpak (5 gm) TOP SCH ×2 (15:01→17:18)
[2018-04-24 01:09] VITALS: RESP 20
[2018-04-24] MEDS: Albuterol-Ipratrop 3 mg / 0.5 (3 ml) UD INH SCH ×3 (03:20→11:30)
[2018-04-24 08:40] VITALS: BP 145/82; PULSE 84; TEMP 97.6; O2SAT 97
[2018-04-24] MEDS: Enoxaparin 40 mg Syringe SC SCH (09:22)
[2018-04-24] MEDS: Petrolatum Oint Foilpak (5 gm) TOP SCH (09:22)
--- NOTE | 2018-04-24 11:46 | CP.PCM.DIS ---
Provider - Provider Date of Admission: 04/22/18 21:48 Attending physician: Lily Valentine MD Consults: 04/23/18 05:54 Psychiatry Consult Routine Comment: Consulting Provider: Rocio Cooney Consulting Physician: Rocio Cooney Reason for Consult: HX: depression, drug abuse Time Spent in preparation of Discharge (in minutes): 35 Diagnosis - Discharge Diagnosis (1) Asthma attack Status: Acute (2) Bipolar affective disorder, depressed, severe, with psychotic behavior Status: Chronic (3) Depression Status: Chronic Hospital Course - Lab Results Lab Results: Most Recent Lab Values WBC 8.2 K/uL (4.8-10.8) 04/23/18 07:50 RBC 4.79 Mil/uL (4.40-5.90) 04/23/18 07:50 Hgb 14.0 g/dL (12.0-18.0) 04/23/18 07:50 Hct 43.0 % (35.0-51.0) 04/23/18 07:50 MCV 89.8 fL (80.0-94.0) 04/23/18 07:50 MCH 29.3 pg (27.0-31.0) 04/23/18 07:50 MCHC 32.7 g/dL (33.0-37.0) L 04/23/18 07:50 RDW 14.0 % (11.5-14.5) 04/23/18 07:50 Plt Count 371 K/uL (130-400) 04/23/18 07:50 MPV 9.0 fL (7.2-11.7) 04/23/18 07:50 Neut % (Auto) 91.6 % (50.0-75.0) H 04/23/18 07:50 Lymph % (Auto) 7.6 % (20.0-40.0) L 04/23/18 07:50 [place] % (Auto) 0.7 % (0.0-10.0) 04/23/18 07:50 Eos % (Auto) 0.0 % (0.0-4.0) 04/23/18 07:50 Baso % (Auto) 0.1 % (0.0-2.0) 04/23/18 07:50 Neut # (Auto) 7.5 K/uL (1.8-7.0) H 04/23/18 07:50 Lymph # (Auto) 0.6 K/uL (1.0-4.3) L 04/23/18 07:50 [place] # (Auto) 0.1 K/uL (0.0-0.8) 04/23/18 07:50 Eos # (Auto) 0.0 K/uL (0.0-0.7) 04/23/18 07:50 Baso # (Auto) 0.0 K/uL (0.0-0.2) 04/23/18 07:50 Neutrophils % (Manual) 90 % (50-75) H 04/23/18 07:50 Lymphocytes % (Manual) 9 % (20-40) L 04/23/18 07:50 Monocytes % (Manual) 1 % (0-10) 04/23/18 07:50 Platelet Estimate Normal (NORMAL) 04/23/18 07:50 Sodium 137 mmol/L (132-148) 04/23/18 07:50 Potassium 4.2 mmol/L (3.6-5.2) 04/23/18 07:50 Chloride 101 mmol/L (98-107) 04/23/18 07:50 Carbon Dioxide 29 mmol/L (22-30) 04/23/18 07:50 Anion Gap 12 (10-20) 04/23/18 07:50 BUN 13 mg/dL (9-20) 04/23/18 07:50 Creatinine 0.7 mg/dL (0.8-1.5) L 04/23/18 07:50 Est GFR ( Amer) > 60 04/23/18 07:50 Est GFR (Non-Af Amer) > 60 04/23/18 07:50 Random Glucose 141 mg/dL (75-110) H D 04/23/18 07:50 Calcium 9.4 mg/dl (8.6-10.4) 04/23/18 07:50 Total Bilirubin 0.2 mg/dL (0.2-1.3) 04/23/18 07:50 AST 28 U/L (17-59) 04/23/18 07:50 ALT 34 U/L (21-72) 04/23/18 07:50 Alkaline Phosphatase 85 U/L (38-126) 04/23/18 07:50 Total Protein 7.6 g/dL (6.3-8.3) 04/23/18 07:50 Albumin 4.3 g/dL (3.5-5.0) 04/23/18 07:50 Globulin 3.3 gm/dL (2.2-3.9) 04/23/18 07:50 Albumin/Globulin Ratio 1.3 (1.0-2.1) 04/23/18 07:50 - Hospital Course Hospital Course: 42 year old male presents to ED with complaint of wheezing for several weeks. He has a past history of asthma but is not currently on any medication. Patient states the wheezing has been occurring day and night, he can't sleep, and it has gotten progressively worse patient was treated with IV steroids and [id number] nebulier and patient improved Patient was anxious to go home. Patient was discharged on by mouth and inhaler. Discharge Exam - Head Exam Head Exam: ATRAUMATIC, NORMAL INSPECTION, NORMOCEPHALIC Discharge Plan - Follow Up Plan Condition: IMPROVED Disposition: HOME/ ROUTINE
--- NOTE | 2018-04-24 12:08 | CP.PCM.PN ---
Subjective - Date & Time of Evaluation Date of Evaluation: 04/24/18 Time of Evaluation: 12:08 - Subjective Subjective: PATIENT SEEN AND EXAMINED AT THE BEDSIDE Objective - Vital Signs/Intake and Output Vital Signs (last 24 hours): Temp Pulse Resp BP Pulse Ox 97.6 F 84 20 145/82 97 04/24/18 08:00 04/24/18 08:00 04/24/18 08:00 04/24/18 08:00 04/24/18 08:00 Intake and Output: 04/24/18 04/24/18 06:59 18:59 Intake Total 980 Balance 980 - Medications Medications: Current Medications Albuterol/Ipratropium (Duoneb 3 Mg/0.5 Mg (3 Ml) Ud) 3 ml INH RQ4 [facility] Last Admin: 04/24/18 07:40 Dose: 3 ml Emollient Ointment (Vaseline Oint) 1 gm TOP BID [facility] Last Admin: 04/24/18 09:22 Dose: 1 gm Enoxaparin Sodium (Lovenox) 40 mg SC DAILY [facility] Last Admin: 04/24/18 09:22 Dose: Not Given Ceftriaxone Sodium 1 gm/ (Sodium Chloride) 100 mls @ 100 mls/hr IVPB DAILY [facility]; Protocol Last Admin: 04/24/18 09:21 Dose: 100 mls/hr Influenza Virus Vaccine (Flucelvax Quad [id number] Syr) 60 mcg IM .ONCE ONE Stop: 04/25/18 10:01 Methylprednisolone (Solu-Medrol) 60 mg IVP Q6 [facility] Last Admin: 04/24/18 12:06 Dose: 60 mg Pneumococcal Polyvalent Vaccine (Pneumovax 23 Vaccine) 0.5 ml IM .ONCE ONE Stop: 04/25/18 10:01 Promethazine HCl (Phenergan Syrup) 12.5 mg PO Q6H PRN PRN Reason: Dry nasal passages - Labs Labs: 04/23/18 07:50 04/23/18 07:50 Assessment and Plan - Assessment and Plan (Free Text) Assessment: FOLLOW UP WITH DR CAMPOS OR PMD IN A WEEK ------CALL FOR APPOINTMENT ADDRESS YOUR MEDICATION AT YOUR VISIT WITH YOUR PMD CONTINUE HOME MEDICATION NEW PRESCRIPTION GIVEN PHERNAGAN SYRUP Q6H PRN FOR 5 DAYS MEDROL DOSE DIRECTED ABUTEROL INH 1 PUFF PRN ACTIVITY TOLERATED CALL DR CAMPOS OR GO TO THE EMERGENCY ROOM IF SYMPTOM RETURN OR WORSENING
[2018-04-24] MEDS ORDERED: Influenza Vaccine 60 mcg/0.5 mL SYR (4YR UP) IM ONE (12:30)
[2018-04-24] MEDS ORDERED: Pneumococcal 23-Valent Vaccine IM ONE (12:30)
--- NOTE | 2018-04-26 08:15 | CARD ---
APPROVED REPORT Date of service: 04/22/2018 EKG Measurement Heart [id number] <Conclusion> Sinus rhythm with occasional premature ventricular complexes Otherwise normal ECG
== END 2018-04-24 12:53 | disposition home or self-care (01) | DRG 96 ==
LOC: C.ER 16:48 → C.3T 21:48
PROVIDERS: ADMIT Internal Medicine Cardiovascular Disease; ATTEND Internal Medicine Cardiovascular Disease
PROC: GZ58ZZZ Individual Psychotherapy, Cognitive-Behavioral (ICD-10-PCS; principal; 2018-04-23)
PROC: HZ59ZZZ Individual Psychotherapy for Substance Abuse Treatment, Supportive (ICD-10-PCS; 2018-04-23)
PROC: GZ56ZZZ Individual Psychotherapy, Supportive (ICD-10-PCS; 2018-04-23)
DX: J45.901 Unspecified asthma with (acute) exacerbation (principal); F31.5 Bipolar disorder, current episode depressed, severe, with psychotic features; F11.23 Opioid dependence with withdrawal; F17.210 Nicotine dependence, cigarettes, uncomplicated; I10 Essential (primary) hypertension; Z91.5 Personal history of self-harm